=== PATIENT | female | born 1965 | race Caucasian/White ===

== ENCOUNTER 2016-06-04 19:55 | Emergency (ER) | payer BC ==
--- NOTE | 2016-06-04 20:30 | UC ---
Palpitation/Dysrhythmia HP - HPI Summary HPI Summary: The patient comes in today for: 1. Palpitations: Onset: 4 hours ago. Palliative/provocative: Laying down helped. Quality: Pressure Region/radiation: Chest with arm numbness Severity: 0/10, but Time: Comes and goes. She has a little bit of pressure at this time. Associated symptoms: Event: She was driving home from [place] today at about 4-5 PM. She had some chest pain/pressure, and palpitations with left arm tingling. She had also some dyspnea. She came here to get this checked out. She has had near syncope in the past with her palpitations, but not this time. This episode lasted about 1.5 hours. Nausea: None. Previous heart disease: She had SVT and a catheter ablation in 1999. Stress test (last one) 2004 (-): She had to wear a monitor--this was about two years ago. No problems found as far as she knows. * - History of Current Complaint Chief Complaint: UC Stated Complaint: HEART RACING/PRESSURE Time Seen by Provider: 06/04/16 20:23 Hx Obtained From: Patient Hx Last Menstrual Period: ablastion 02/14 - Allergy/Home Medications Allergies/Adverse Reactions: Allergies Allergy/AdvReac Type Severity Reaction Status Date / Time Sulfa Antibiotics AdvReac Severe Nausea, Verified 06/04/16 20:02 VERTIGO Home Medications: Home Medications Albuterol HFA INHALER* [Ventolin HFA Inhaler*] 2 puff INH Q4H PRN 06/04/16 [ History Confirmed 06/04/16] Fluticasone HFA 44 mcg(NF) [Flovent Hfa 44 mcg(NF)] 1 puff INH BID 06/04/16 [ History Confirmed 06/04/16] PMH/Surg Hx/FS Hx/Imm Hx Previously Healthy: No Endocrine History Of: Denies: Diabetes, Thyroid Disease Cardiovascular History Of: Reports: Cardiac Disorders - cardiac ablation for SVT Denies: Hypertension, Pacemaker/ICD, Myocardial Infarction, Congestive Heart Failure, Atrial Fibrillation, Deep Vein Thrombosis, Bleeding Disorders Respiratory History Of: Reports: Asthma GI/ History Of: Denies: Gastroesophageal Reflux, Ulcer, Gastrointestinal Bleed, Gall Bladder Disease, Kidney Stones, Diverticulitis, Renal Disease, Urosepsis Neurological History Of: Reports: Migraine - ONCE A MONTH Denies: TIA, CVA, Dementia, Seizures Psychological History Of: Denies: Anxiety, Depression, Bipolar Disorder, Schizophrenia, Post Traumatic Stress Disorder Cancer History Of: Denies: Lung Cancer, Colorectal Cancer, Breast Cancer, Prostate Cancer, Cervical Cancer Other History Of: Negative For: HIV, Hepatitis B, Hepatitis C, Anticoagulant Therapy - Surgical History Surgical History: Yes Surgery Procedure, Year, and Place: RHINOPLASTY-1988. RIGHT LUMPECTOMY 1994 [facility] [place]. SURGERY TO CORRECT [id number] RP. gallbladder October 2013, ablation 02/14, gastric sleeve 08/16 - Family History Known Family History: Positive: Cardiac Disease - Father had WPW., Hypertension - Social History Occupation: Employed Full-time Alcohol Use: None Substance Use Type: None Smoking Status (MU): Never Smoked Tobacco - Immunization History Most Recent Influenza Vaccination: fall 2015 Most Recent Tetanus Shot: 11/22/12 Most Recent Pneumonia Vaccination: pt declines Review of Systems Constitutional: Negative Skin: Negative Eyes: Negative ENT: Negative Respiratory: Negative Cardiovascular: Chest Pain Gastrointestinal: Negative Genitourinary: Negative All Other Systems Reviewed And Are Negative: Yes Physical Exam Triage Information Reviewed: Yes Appearance: Well-Appearing, No Pain Distress, Well-Nourished Vital Signs: Initial Vital Signs Temp 98.9 F 06/04/16 20:05 Pulse 64 06/04/16 20:05 Resp 16 06/04/16 20:05 BP 120/73 06/04/16 20:05 Pulse Ox 97 06/04/16 20:05 Vital Signs Reviewed: Yes Eyes: Positive: Conjunctiva Clear. Negative: Discharge ENT: Positive: Hearing grossly normal. Negative: Pharyngeal erythema, Nasal congestion, Nasal drainage, TM bulging, TM dull, TM red, Tonsillar swelling, Tonsillar exudate Dental: Negative: Gross Decay/Caries @, Dental Fracture @ Neck: Positive: Supple, Nontender, No Lymphadenopathy. Negative: Nuchal Rigidity Respiratory: Positive: Lungs clear, No respiratory distress, No accessory muscle use. Negative: Crackles, Wheezing Cardiovascular: Positive: RRR, No Murmur Abdomen Description: Positive: Nontender, No Organomegaly, Soft. Negative: Distended, Guarding Musculoskeletal: Positive: Strength Intact, ROM Intact, No Edema Neurological: Positive: Alert Psychological: Positive: Age Appropriate Behavior, Consolable Skin: Negative: rashes, breakdown Diagnostics - Laboratory Diagnostic Studies Completed/Ordered: EKG: Rate: 67. Rhythm: sinus. Ectopy: None. Acute changes--none--no change from previous EKG. Palpitations Course/Dx - Course Course Of Treatment: Patient was told of my recommendation to go to the ER for evaluation of her chest pressure/palpitations. She will be given 324 mg of aspirin and 0.4 mg of nitroglycerine SL. - Differential Dx/Diagnosis Provider Diagnoses: Chest pressure, palpitations, - Physician Notifications Discussed Patient Care With: Dr. Guzman Time Discussed With Above Provider: 20:42 Discharge - Discharge Plan Condition: Stable Disposition: HOME Additional Instructions: Patient being sent to [facility] ER via ambulance.
[2016-06-04] MEDS ORDERED: Nitroglycerin TAB 0.4 MG* 0.4 MG TAB ONE (20:37)
[2016-06-04] MEDS ORDERED: Aspirin Low Dose CHEW TAB* 81 MG ONE (20:37)
[2016-06-04] MEDS ORDERED: Aspirin Low Dose CHEW TAB* 81 MG PO ONE (20:38)
[2016-06-04] MEDS ORDERED: Nitroglycerin TAB 0.4 MG* 0.4 MG TAB SL ONE (20:39)
[2016-06-04 21:09] VITALS: BP 141/71
== END 2016-06-04 20:58 | disposition short-term general hospital (02) ==
LOC: UCEAST 19:55
DX: R07.89 Other chest pain (principal); R00.2 Palpitations; I47.1 Supraventricular tachycardia; Z88.2 Allergy status to sulfonamides
CPT/HCPCS: 93005; 99213; A9270-GY; G0463

== ENCOUNTER 2016-06-04 21:18 | Observation (INO) | payer BC ==
[2016-06-04] MEDS ORDERED: Aspirin Low Dose CHEW TAB* 81 MG PO ONE (22:11)
[2016-06-04 22:20] LABS: Hematocrit 36 % (35-47); Hemoglobin 12.1 g/dl (12.0-16.0); Mean Corpuscular HGB Conc 33 g/dl (31-36); Mean Corpuscular Hemoglobin 30 pg (27-31); Mean Corpuscular Volume 91 fL (80-97); Mean Platelet Volume 8 um3 (7.4-10.4); Red Cell Distribution Width 13 % (10.5-15); White Blood Count 7.5 10^3/ul (3.5-10.8)
[2016-06-04 22:36] LABS: Albumin 3.8 g/dL (3.2-5.2); BUN/Creatinine Ratio 14.4 (8-20); Calcium 8.8 mg/dL (8.6-10.3); EGFR African American 78.2 (>60); EGFR Non-African American 60.8 (>60); Globulin 2.6 g/dL (2-4); Magnesium 1.9 mg/dL (1.9-2.7); Potassium 3.4 mmol/L (3.5-5.0); Total Bilirubin 0.4 mg/dL (0.2-1.0); Total Protein 6.4 g/dL (6.4-8.9)
[2016-06-04] MEDS ORDERED: Potassium Chlor TAB* 20 MEQ TAB.ER PO ONE (22:44)
--- NOTE | 2016-06-04 22:59 | RAD ---
INDICATION: Chest pain. COMPARISON: Comparison is made with a prior chest x-ray study from April 22, 2013. TECHNIQUE: A portable view of the chest was obtained. FINDINGS: Cardiac and mediastinal contours appear to be within normal limits. The lungs are clear. No pleural effusion is seen. IMPRESSION: NO EVIDENCE FOR ACUTE DISEASE.
--- NOTE | 2016-06-05 00:02 | ED ---
Abdifatah Morales Billy, scribed for Jeremias Guzman MD on 06/04/16 at 2217 . HPI Chest Pain - HPI Summary HPI Summary: Patient is a 50 year-old female coming to [facility] presenting with left-sided chest pain starting at 1630 today, lasting approximately 90 minutes. She was seen at the Urgent Care and was given NTG and ASA, which improved her symptoms. At time of onset, she describes chest pressure and LUE numbness/tingling along with SOB. However, at this time, she only describes chest pain, non-radiating, 2 /10. Denies any N/V or dizziness. - History of Current Complaint Chief Complaint: EDChestPainROMI Time Seen by Provider: 06/04/16 22:10 Hx Obtained From: Patient Onset/Duration: Started Hours Ago Timing: Constant Initial Severity: Moderate Current Severity: Moderate Pain Intensity: 2 Pain Scale Used: 0-10 Numeric Chest Pain Radiates: No Character: Pressure/Squeezing Aggravating Factor(s): Nothing Alleviating Factor(s): Medication, NTG 123 Associated Signs and Symptoms: Positive: Numbness, Tingling, Shortness of Breath. Negative: Dizziness, Nausea, Vomiting - Allergy/Home Medications Allergies/Adverse Reactions: Allergies Allergy/AdvReac Type Severity Reaction Status Date / Time Sulfa Antibiotics AdvReac Severe Nausea, Verified 06/04/16 20:02 VERTIGO PMH/Surg Hx/FS Hx/Imm Hx Endocrine/Hematology History: Denies: Hx Anticoagulant Therapy, Hx Diabetes, Hx Thyroid Disease Cardiovascular History: Reports: Other Cardiovascular Problems/Disorders - SVT Denies: Hx Congestive Heart Failure, Hx Deep Vein Thrombosis, Hx Hypertension , Hx Myocardial Infarction, Hx Pacemaker/ICD Respiratory History: Reports: Hx Asthma, Hx Sleep Apnea - NO MACHINE Denies: Hx Chronic Obstructive Pulmonary Disease (COPD), Hx Lung Cancer GI History: Denies: Hx Gall Bladder Disease, Hx Gastrointestinal Bleed, Hx Ulcer, Hx Urosepsis, Other GI Disorders History: Denies: Hx Kidney Stones, Hx Renal Disease Musculoskeletal History: Reports: Hx Arthritis - OSTEOARTHRITIS-KNEE, ANKLE, SHOULDERS Sensory History: Denies: Hx Contacts or Glasses, Hx Hearing Aid Opthamlomology History: Denies: Hx Contacts or Glasses Neurological History: Reports: Hx Migraine - ONCE A MONTH Denies: Hx Dementia, Hx Seizures, Hx Transient Ischemic Attacks (TIA), Other Neuro Impairments/Disorders Psychiatric History: Denies: Hx Anxiety, Hx Depression, Hx Schizophrenia, Hx Bipolar Disorder - Cancer History Hx Chemotherapy: No Hx Radiation Therapy: No - Surgical History Surgery Procedure, Year, and Place: RHINOPLASTY-1988. [place] [facility] [place]GERY TO CORRECT [id number] RP. gallbladder October 2013, ablation 02/14, gastric sleeve 08/16 Hx Anesthesia Reactions: Yes - AWOKE WITH HORRIBLE HEADACHE TWICE Infectious Disease History: No Infectious Disease History: Denies: Hx Clostridium Difficile, Hx Hepatitis, Hx Human Immunodeficiency Virus (HIV), Hx Shingles, Hx Tuberculosis, Hx Known/Suspected VRE, Hx Known/ Suspected VRSA, History Other Infectious Disease, Traveled Outside the [place] in Last 30 Days Comment Only: Hx of Known/Suspected MRSA - kids have hx - Family History Known Family History: Positive: Cardiac Disease - Father had WPW., Hypertension - Social History Alcohol Use: None Substance Use Type: Reports: None Smoking Status (MU): Never Smoked Tobacco Review of Systems Positive: Chest Pain Positive: Shortness Of Breath Negative: Vomiting, Nausea Positive: Paresthesia, Numbness All Other Systems Reviewed And Are Negative: Yes Physical Exam - Summary Physical Exam Summary: VITAL SIGNS: Reviewed. GENERAL: Patient is a well developed and nourished female who is lying comfortable in the stretcher. Patient is not in any acute respiratory distress. HEAD AND FACE: No signs of trauma. No ecchymosis, hematomas or skull depressions. No sinus tenderness. EYES: PERRLA, EOMI x 2, No injected conjunctiva, no nystagmus. EARS: Hearing grossly intact. Ear canals and tympanic membranes are within normal limits. MOUTH: Oropharynx within normal limits. NECK: Supple, trachea is midline, no adenopathy, no JVD, no carotid bruit, no c- spine tenderness, neck with full ROM. CHEST: Symmetric, no tenderness at palpation LUNGS: Clear to auscultation bilaterally. No wheezing or crackles. CVS: Regular rate and rhythm, S1 and S2 present, no murmurs or gallops appreciated. ABDOMEN: Soft, non-tender. No signs of distention. No rebound no guarding, and no masses palpated. Bowel sounds are normal. EXTREMITIES: FROM in all major joints, no edema, no cyanosis or clubbing. NEURO: Alert and oriented x 3. No acute neurological deficits. Speech is normal and follows commands. SKIN: Dry and warm Triage Information Reviewed: Yes Vital Signs On Initial Exam: Initial Vitals Temp Pulse Resp BP Pulse Ox 98.2 F 57 18 129/66 97 06/04/16 21:54 06/04/16 21:54 06/04/16 21:54 06/04/16 21:54 06/04/16 21:54 Vital Signs Reviewed: Yes Diagnostics - Vital Signs Vital Signs Temp Pulse Resp BP Pulse Ox 06/04/16 21:54 98.2 F 57 18 129/66 97 - Laboratory Lab Results: Lab Results 06/04/16 06/04/16 06/04/16 Range/Units 20:53 20:53 20:53 WBC 7.5 (3.5-10.8) 10^3/ul RBC 4.00 (4.0-5.4) 10^6/ul Hgb 12.1 (12.0-16.0) g/dl Hct 36 (35-47) % MCV 91 (80-97) fL MCH 30 (27-31) pg MCHC 33 (31-36) g/dl RDW 13 (10.5-15) % Plt Count 230 (150-450) 10^3/ul MPV 8 (7.4-10.4) um3 Neut % (Auto) 63.3 (38-83) % Lymph % (Auto) 23.1 L (25-47) % Butler % (Auto) 11.1 H (1-9) % Eos % (Auto) 2.0 (0-6) % Baso % (Auto) 0.5 (0-2) % Absolute Neuts (auto) 4.7 (1.5-7.7) 10^3/ul Absolute Lymphs (auto) 1.7 (1.0-4.8) 10^3/ul Absolute Monos (auto) 0.8 (0-0.8) 10^3/ul Absolute Eos (auto) 0.2 (0-0.6) 10^3/ul Absolute Basos (auto) 0 (0-0.2) 10^3/ul Absolute Nucleated RBC 0.01 10^3/ul Nucleated RBC % 0.1 Sodium 140 (133-145) mmol/L Potassium 3.4 L (3.5-5.0) mmol/L Chloride 105 (101-111) mmol/L Carbon Dioxide 30 (22-32) mmol/L Anion Gap 5 (2-11) mmol/L BUN 14 (6-24) mg/dL Creatinine 0.97 H (0.51-0.95) mg/dL Est GFR ( Amer) 78.2 (>60) Est GFR (Non-Af Amer) 60.8 (>60) BUN/Creatinine Ratio 14.4 (8-20) Glucose 90 (70-100) mg/dL Lactic Acid 1.0 (0.5-2.0) mmol/L Calcium 8.8 (8.6-10.3) mg/dL Magnesium 1.9 (1.9-2.7) mg/dL Total Bilirubin 0.40 (0.2-1.0) mg/dL AST 14 (13-39) U/L ALT 9 (7-52) U/L Alkaline Phosphatase 60 (34-104) U/L CK-MB (CK-2) 1.3 (0.6-6.3) ng/mL Troponin I 0.00 (<0.04) ng/mL B-Natriuretic Peptide ( - 100) pg/mL Total Protein 6.4 (6.4-8.9) g/dL Albumin 3.8 (3.2-5.2) g/dL Globulin 2.6 (2-4) g/dL Albumin/Globulin Ratio 1.5 (1-3) 06/04/16 Range/Units 20:53 WBC (3.5-10.8) 10^3/ul RBC (4.0-5.4) 10^6/ul Hgb (12.0-16.0) g/dl Hct (35-47) % MCV (80-97) fL MCH (27-31) pg MCHC (31-36) g/dl RDW (10.5-15) % Plt Count (150-450) 10^3/ul MPV (7.4-10.4) um3 Neut % (Auto) (38-83) % Lymph % (Auto) (25-47) % Butler % (Auto) (1-9) % Eos % (Auto) (0-6) % Baso % (Auto) (0-2) % Absolute Neuts (auto) (1.5-7.7) 10^3/ul Absolute Lymphs (auto) (1.0-4.8) 10^3/ul Absolute Monos (auto) (0-0.8) 10^3/ul Absolute Eos (auto) (0-0.6) 10^3/ul Absolute Basos (auto) (0-0.2) 10^3/ul Absolute Nucleated RBC 10^3/ul Nucleated RBC % Sodium (133-145) mmol/L Potassium (3.5-5.0) mmol/L Chloride (101-111) mmol/L Carbon Dioxide (22-32) mmol/L Anion Gap (2-11) mmol/L BUN (6-24) mg/dL Creatinine (0.51-0.95) mg/dL Est GFR ( Amer) (>60) Est GFR (Non-Af Amer) (>60) BUN/Creatinine Ratio (8-20) Glucose (70-100) mg/dL Lactic Acid (0.5-2.0) mmol/L Calcium (8.6-10.3) mg/dL Magnesium (1.9-2.7) mg/dL Total Bilirubin (0.2-1.0) mg/dL AST (13-39) U/L ALT (7-52) U/L Alkaline Phosphatase (34-104) U/L CK-MB (CK-2) (0.6-6.3) ng/mL Troponin I (<0.04) ng/mL B-Natriuretic Peptide 44 ( - 100) pg/mL Total Protein (6.4-8.9) g/dL Albumin (3.2-5.2) g/dL Globulin (2-4) g/dL Albumin/Globulin Ratio (1-3) Result Diagrams: 06/04/16 20:53 06/04/16 20:53 Lab Statement: Any lab studies that have been ordered have been reviewed, and results considered in the medical decision making process. - Radiology CXR Xray Interpretation: No Acute Changes Radiology Interpretation Completed By: Radiologist - EKG 4421 EKG Interpretation: sinus negro 53 bpm, no ST elevation Chest Pain Course/Dx - Course Assessment/Plan: Patient is a 50 year-old female coming to [facility] presenting with left-sided chest pain starting at 1630 today, lasting approximately 90 minutes. She was seen at the Urgent Care and was given NTG and ASA, which improved her symptoms. At time of onset, she describes chest pressure and LUE numbness/tingling along with SOB. However, at this time, she only describes chest pain, non-radiating, 2/10. Denies any N/V or dizziness. Bloodwork WNL except for potassium of 3.4 for which the patient was given potassium chloride. CXR shows no acute disease. EKG shows sinus bradycardia without ST elevation. Since we are waiting for the second troponin reading, the patient will be signed out to Dr. Montano at shift change. She is hemodynamically stable, A&Ox3. - Chest Pain Differential Diagnosis/HQI/PQRI: ACS, Angina, CHF, Chest Wall, GI Disease, Lower Respiratory Infection - Diagnoses Provider Diagnoses: Chest pain Discharge - Discharge Plan Condition: Stable Disposition: HOME Patient Education Materials: Chest Pain (ED) Referrals: Amy Betancourt MD [Primary Care Provider] - The documentation as recorded by the Abdifatah alexanedr Billy accurately reflects the service I personally performed and the decisions made by , Jeremias Guzman MD.
[2016-06-05 00:45] LABS: Urine Bilirubin Negative (Negative); Urine Glucose Negative (Negative); Urine Nitrite Negative (Negative)
[2016-06-05] MEDS ORDERED: Fluticasone HFA 44 mcg(NF) MDI INH PRN (05:03)
[2016-06-05] MEDS ORDERED: Albuterol HFA INHALER* 8 gm MDI INH PRN (05:03)
[2016-06-05] MEDS ORDERED: Heparin VIAL(*) 5000 UNITS/ML VIAL (FIVE THOUSAND) SUBCUT SCH (06:00)
[2016-06-05 06:04] LABS: HDL Cholesterol 46.1 mg/dL
[2016-06-05 06:07] LABS: Troponin I 0.01 ng/mL (<0.04)
--- NOTE | 2016-06-05 08:20 | HP ---
HISTORY AND PHYSICAL: DATE OF ADMISSION: 06/05/16 CHIEF COMPLAINT: Chest pain. HISTORY OF PRESENT ILLNESS: The patient is a 50-year-old woman who presented to [facility] with chief complaint of chest pain that started while she was driving today about 4:30 p.m. It was a pressure-like pain, and felt like an air bubble in her chest. At its worst, it was 4-6/10 in severity. It also seemed to radiate to both arms with numbness and tingling. When she got here, she received nitro, which seemed to help the pain. She did, however, become nauseated but did not vomit. She had associated shortness of breath and used her inhaler which seemed to help that. She has had no sweating. Currently , she is chest pain free. PAST MEDICAL HISTORY: Significant for seasonal allergies, asthma, gastric sleeve surgery, cholecystectomy, catheter ablation for SVT, rhinoplasty for deviated septum, and right breast lumpectomy. CURRENT MEDICATIONS: 1. Vitamin B12 one tablet daily. 2. Multivitamin one tablet daily. 3. Ibuprofen 800 mg daily as needed. 4. Fluticasone Flovent one inhalation twice daily as needed. 5. Calcium 1000 plus vitamin D one tablet daily. 6. Albuterol inhaler two puffs every 4 hours as needed. ALLERGIES: She has an allergy/adverse reaction to SULFA ANTIBIOTICS. FAMILY HISTORY: Mother is alive at 69, has hypertension, diabetes, peripheral vascular disease, and CVA. Father at 58 at a car accident. SOCIAL HISTORY: No tobacco, no alcohol, no recreational drug use. She is a educational aide. She is . She has eight total. Her oldest son, Sam Peña, is her healthcare proxy. REVIEW OF SYSTEMS: A 14-point review of systems was completed with the patient. All pertinent positives and negatives are in the history of present illness; otherwise, it is negative. PHYSICAL EXAMINATION GENERAL: Pleasant woman lying in bed, in no acute distress. VITAL SIGNS: Blood pressure 100/64, pulse ox 97%, respiratory rate 12 breaths per minute, heart rate 48 beats per minute, temperature 98.2 degrees. HEENT: Normocephalic, atraumatic. Pupils are equal, round, and reactive to light. Moist mucous membranes. NECK: Supple. No JVD, bruits, palpable thyroid, or lymphadenopathy. CHEST: Clear to auscultation and percussion bilaterally. CARDIOVASCULAR: S1 and S2 appreciated. Regular rate and rhythm. No murmurs, gallops, or rubs. ABDOMEN: Positive bowel sounds in all 4 quadrants. Soft, nontender, and nondistended. EXTREMITIES: No cyanosis, clubbing, or edema. +2 peripheral pulses bilaterally. NEUROLOGIC: Alert and oriented x3, moves all extremities. SKIN: No rashes or abnormalities. DIAGNOSTIC DATA AND LABORATORY DATA: White count 7.5, hemoglobin 12.1, hematocrit 36, platelets 230. Sodium 140, potassium 3.4, chloride 105, CO2 30, BUN 14, creatinine 0.97, glucose 90. Troponin is 0.0; repeat troponin is 0.01. UA is unremarkable. EKG shows sinus bradycardia at 53 beats per minute, left axis deviation, left internal hemiblock, no acute ST-T wave changes. Chest x-ray was interpreted by Radiology as no evidence for acute disease. ASSESSMENT AND PLAN: 1. Chest pain. The patient with reasonable story and it was relieved by nitro. We will keep the patient here. Get a stress test in the a.m. Check lipid profile. If stress test is negative, she can be likely discharged home with close followup with her PCP. 2. Fluids, electrolytes, nutrition. NPO for stress test. 3. Deep venous thrombosis prophylaxis. Heparin subcu. 4. The patient is a full code. TIME SPENT: Over 75 minutes were spent on this H and P, more than 40 minutes of which were spent in direct [id number] contact with the patient in evaluation, physical exam, counselling, and coordination of care. CC: Dr. Amy Betancourt * [id number]/CPS #: [id number] MTDD
[2016-06-05] MEDS ORDERED: Cholecalciferol TAB* 1000 UNITS PO SCH (09:00)
[2016-06-05] MEDS ORDERED: Multivitamins/Minerals TAB PO SCH (09:00)
[2016-06-05] MEDS ORDERED: Calcium Carbonate CHEW TAB* 500 MG (TUMS) PO SCH (09:00)
[2016-06-05] MEDS ORDERED: Regadenoson* 0.4 MG/5 ML SYRINGE ONE (12:11)
[2016-06-05] MEDS ORDERED: Acetaminophen TAB* 325 MG PO PRN (13:04)
--- NOTE | 2016-06-05 13:48 | RAD ---
Edited for charges. INDICATION: Chest pain. COMPARISON: There are no prior studies available for comparison. Technique: A single day myocardial perfusion stress study was performed. Initially the resting study was performed. The patient was given an intravenous injection of 10.4 mCi of technetium 99m tetrofosmin and and the heart was imaged in multiple projections. The patient returned later in the day and under the direction of Dr. Gallagher, the patient was given intervenous injection of Lexiscan. Subsequently the patient was given intravenous injection of 25.6 mCi of technetium 99m tetrofosmin and the heart was imaged in multiple projections. Images were reconstructed in the axial, sagittal and coronal planes and in a 3- D format. FINDINGS: There appears to be normal wall motion and myocardial thickening. The left ventricular ejection fraction was calculated to be 80%. Review of the images demonstrates no evidence for significant focal abnormality. IMPRESSION: NO EVIDENCE FOR INFARCT OR ISCHEMIA. ASSESSMENT: Low risk. Based on imaging criteria from ACC/AHA 2002 Guideline Update for the Management of Patients With Chronic Stable Angina Table 23. Noninvasive Risk Stratification. MTDD
--- NOTE | 2016-06-05 15:18 | PN ---
Subjective Date of Service: 06/05/16 Interval History: Patient seen and examined at bedside. Pt states that she feels well. She reports a headache after the stress test, but this is improved after caffeine. Pt denies fever, chills, shortness of breath, chest discomfort, N/V/D. Pt denies further pain in her left shoulder, reports an injury to her left shoulder in the past few weeks. Tele: Sinus negro, rate 50's. Family History: Unchanged from Admission Social History: Unchanged from Admission Past Medical History: Unchanged from Admission Objective Active Medications: Acetaminophen (Tylenol Tab*) 650 mg PO Q4H PRN Reason: FEVER/PAIN Albuterol (Ventolin Hfa Inhaler*) 2 puff INH Q4H PRN Reason: wheezes Calcium Carbonate (Tums*) 1,000 mg PO DAILY RANDALL Cholecalciferol (Vitamin D Tab*) 1,000 units PO DAILY RANDALL Fluticasone Propionate (Flovent Hfa 44 Mcg(Nf)) 1 puff INH BID PRN Reason: Allergy Symptoms Heparin Sodium (Porcine) (Heparin Vial(*)) 5,000 units SUBCUT Q8HR RANDALL Multivitamins/Minerals (Theragran/Minerals Tab*) 1 tab PO DAILY RANDALL Vital Signs 06/05/16 06/05/16 06:26 07:31 Temperature 97.3 F 98.3 F Pulse Rate 51 46 Respiratory 17 16 Rate Blood Pressure 137/77 102/56 (mmHg) O2 Sat by Pulse 100 98 Oximetry Oxygen Devices in Use Now: None Appearance: NAD, laying in bed. Eyes: No Scleral Icterus, PERRLA Ears/Nose/Mouth/Throat: NL Teeth, Lips, Gums, Mucous Membranes Moist Neck: NL Appearance and Movements; NL JVP, Trachea Midline Respiratory: Symmetrical Chest Expansion and Respiratory Effort, Clear to Auscultation Cardiovascular: NL Sounds; No Murmurs; No JVD, RRR Abdominal: NL Sounds; No Tenderness; No Distention - Bowel sounds present Extremities: No Edema Skin: No Rash or Ulcers Neurological: Alert and Oriented x 3, NL Muscle Strength and Tone Lines/Tubes/Other Access: Clean, Dry and Intact Peripheral IV - site benign Nutrition: Taking PO's Result Diagrams: 06/04/16 20:53 06/04/16 20:53 Additional Lab and Data: Assess/Plan/Problems-Billing Assessment: Ms. Soler is a 50 year old female with PMH significant for asthma, seasonal allergies and SVT s/p cardiac ablation who presented to the emergency room with complaints of chest pressure and feeling like an "air bubble" in her chest with associated shortness of breath and pain radiating to her left shoulder. - Patient Problems (1) Chest pain Code(s): R07.9 - CHEST PAIN, UNSPECIFIED SNOMED Code(s): 41871691 Comment: - Denies further chest pain - Stress test - low risk (2) DVT prophylaxis Code(s): KTG0959 - SNOMED Code(s): 159489858 (3) Full code status Current Visit: Yes Status: Acute Code(s): Z78.9 - OTHER SPECIFIED HEALTH STATUS SNOMED Code(s): 462573367 Status and Disposition: OBV. Stable for discharge to home today.
[2016-06-05 16:42] VITALS: BP 115/72
--- NOTE | 2016-06-06 14:50 | DS ---
DISCHARGE SUMMARY: DATE OF ADMISSION: 06/05/16 DATE OF DISCHARGE: 06/05/16 ATTENDING PHYSICIAN: Wilton Marr MD* (dictated by Ethel Freed NP) PRIMARY CARE PROVIDER: Dr. Amy Betancourt. STUDIES WHILE IN THE HOSPITAL: 1. Chest x-ray on 06/04/16. Radiologist's impression: No evidence for active disease. 2. Cardiac stress test on 06/05/16. Trade Recruiter's observation based on EKG with normal sinus rhythm and right bundle-branch block. Radiologist's impression: Lexiscan Myoview nuclear stress test without chest pain. No arrhythmias. No new ST-T changes. Conclusion: Uneventful first part of Lexiscan Myoview nuclear stress test. No evidence for infarct or ischemia. Low risk study. DISCHARGE MEDICATIONS: Continued home medications: 1. Calcium plus D one tablet oral daily. 2. Multivitamin one tablet oral daily. 3. Vitamin B12 one tablet oral daily. 4. Flovent HFA one puff inhalation twice daily as needed for allergy symptoms. 5. Albuterol HFA 2 puffs inhalation every 4 hours as needed for shortness of breath or wheeze. Changed medication: Ibuprofen 600 mg oral daily as needed for pain. HISTORY OF PRESENT ILLNESS/HOSPITAL COURSE: Ms. Soler is a 50-year-old female with past medical history significant for asthma, cardiac ablation for SVT, who presents to the hospital with complaints of chest discomfort while driving. The patient describes the pain as a pressure like discomfort and feeling like she had a "air bubble" in her chest. The patient also reports pain radiating in both of her arms, numbness and tingling. The patient also reports using her inhaler, which helped to relieve some associated shortness of breath. The patient did report some nausea, but denied any vomiting. The patient decided to present to the emergency room for further evaluation of her symptoms. While in the emergency room, the patient received nitro and the patient eventually was pain free. The patient had a chest x-ray showing no active disease. The patient also had an EKG showing a sinus bradycardia with a left axis deviation and left internal hemiblock, but no acute ST-T wave changes. The patient had labs that were reasonably unremarkable. She had a potassium of 3.4, creatinine of 0.97, troponin of 0.01 and repeat troponin was 0.01. The patient had an unremarkable urinalysis. Hospitalists were asked to evaluate the patient for admission. While in the hospital, the patient remained chest pain free. The patient reports recently having a left shoulder dislocation, she felt that this may have been contributing to her pain in her left shoulder yesterday. The patient states she has been able to ambulate without any shortness of breath or chest pain. The patient underwent a Myoview cardiac stress test that was a low risk. The patient's troponins were essentially flat at 0.01. The patient had a lipid panel that was within normal limits. The patient was slightly hypoglycemic upon arrival to the ER, but did not have repeat labs. It is to note that the patient also have slightly elevated creatinine of 0.97 during her stay. It is suspected that the patient's pain could be related to anxiety, indigestion and/or recent shoulder dislocation. Ms. Soler is stable for discharge to home today. PHYSICAL EXAMINATION: Vital signs are as follows: Temperature 97.4, heart rate 58, respiratory rate 16, O2 sat 97% on room air, blood pressure 115/72. DISCHARGE PLAN: Ms. Soler will be discharged to home. Activity as tolerated. She should be on a regular diet. With regard to the patient's chest pain, her chest pain has resolved. With the patient's description of like a bubble in her chest, I suspect this could potentially be indigestion. She had a negative stress test while here. The patient should follow with her primary care provider, Dr. Betancourt. Dr. Betancourt's office will call the patient for followup appointment. This is a summarized report of a complex medical history and hospital stay. For further details, please see the entire medical record. TIME SPENT: Time for this discharge was 50 minutes, 25 minutes was spent face-to- face with the patient discussing discharge plan and discharge instructions. CONDITION ON DISCHARGE: Stable. Reviewed by GUILLAUME ROMO 06/18/16 1427 CC: Dr. Amy Betancourt * [id number]/CPS #: [id number] EVAN
--- NOTE | 2016-07-31 11:01 | ED ---
Priya Morales Janilya, scribed for Matthew Montano MD on 06/05/16 at 0007 . Re-Evaluation - Re-Evaluation First Eval Re-Evaluation Time: 03:12 Change: Improved Comment: Pt still has 4/10 substernal CP. Original pain was alleviated with NTG. Course/Dx - Diagnoses Provider Diagnoses: Chest pain - Provider Notifications Discussed Care Of Patient With: Dr. Jade (hospitalist) at 0315: agrees to admit pt. Discharge - Discharge Plan Condition: Stable Disposition: ADMITTED TO [facility] Patient Education Materials: Chest Pain (ED) Referrals: Amy Betancourt MD [Primary Care Provider] - The documentation as recorded by the renettaibPriya be Janilya accurately reflects the service I personally performed and the decisions made by , Matthew Montano MD.
== END 2016-06-05 17:20 | disposition home or self-care (01) ==
LOC: ED 21:18 → MEDTELE 06-05 05:24
PROVIDERS: ADMIT Internal Medicine; ATTEND Hospitalist
DX: R07.9 Chest pain, unspecified (principal); R06.02 Shortness of breath; I45.10 Unspecified right bundle-branch block; R00.1 Bradycardia, unspecified; Z88.2 Allergy status to sulfonamides
CPT/HCPCS: 36415; 71010; 78452; 80053; 80061; 81003; 82553; 83605; 83735; 83880; 84484; 85025; 93005; 93017; 96372; 99284; A9270-GY; A9502; G0378; J1644; J2785

== ENCOUNTER 2016-09-28 19:53 | Emergency (ER) | payer BC ==
--- NOTE | 2016-09-28 22:00 | UC ---
Complaint Female HPI - HPI Summary HPI Summary: FEW DAYS OF URINARY FREQUENCY, URGENCY AND DYSURIA. TODAY NOTICED A TINGE OF BLOOD WHEN WIPING AFTER URINATING. NO FEVER, NAUSEA OR BACK PAIN. TO CLARIFY NURSING TRIAGE NOTE: 2 WEEKS AGO PT WAS AT PCP OFFICE FOR ANNUAL EXAM. HAS HAD SOME PELVIC PAIN AND STUDIES SHOWED MIGRATION OF ESSURE IMPLANT. GIVEN SX PT WAS "SWABBED FOR EVERYTHING". RECEIVED A CALL THAT SHE MAY HAVE SOME YEAST SO WAS PLACED ON DIFLUCAN X 1 AND THEN REPEATED SEVERAL DAYS LATER. PT DID NOT HAVE ANY NOTABLE DISCHARGE OR URINARY SX AT THAT TIME. - History Of Current Complaint Chief Complaint: UCGU Stated Complaint: FREQUENT URINATION Time Seen by Provider: 09/28/16 21:45 Hx Obtained From: Patient Hx Last Menstrual Period: UTERINE ABLATION (LMP 2013) Onset/Duration: Gradual Onset, Lasting Days, Still Present Timing: Constant Severity Initially: Moderate Severity Currently: Moderate Pain Intensity: 7 Pain Scale Used: 0-10 Numeric Character: Burning Aggravating Factor(s): Urination Alleviating Factor(s): Nothing Associated Signs And Symptoms: Negative: Fever, Vaginal Bleeding/Discharge, Nausea, Vomiting(# Of Episodes =), Genital Swelling, Genital Blisters - Allergies/Home Medications Allergies/Adverse Reactions: Allergies Allergy/AdvReac Type Severity Reaction Status Date / Time Sulfa Antibiotics AdvReac Severe Nausea, Verified 09/28/16 20:27 VERTIGO PMH/Surg Hx/FS Hx/Imm Hx Endocrine History Of: Denies: Diabetes, Thyroid Disease Cardiovascular History Of: Reports: Cardiac Disorders - cardiac ablation for SVT Denies: Hypertension, Pacemaker/ICD, Myocardial Infarction, Congestive Heart Failure, Atrial Fibrillation, Deep Vein Thrombosis, Bleeding Disorders Respiratory History Of: Reports: Asthma - ALLERGY-RELATED, Bronchitis Denies: COPD GI/ History Of: Denies: Gastroesophageal Reflux, Ulcer, Gastrointestinal Bleed, Gall Bladder Disease, Kidney Stones, Diverticulitis, Renal Disease, Urosepsis Neurological History Of: Reports: Migraine - ONCE A MONTH Denies: TIA, CVA, Dementia, Seizures Psychological History Of: Denies: Anxiety, Depression, Bipolar Disorder, Schizophrenia, Post Traumatic Stress Disorder Cancer History Of: Denies: Lung Cancer, Colorectal Cancer, Breast Cancer, Prostate Cancer, Cervical Cancer Other History Of: Negative For: HIV, Hepatitis B, Hepatitis C, Anticoagulant Therapy - Surgical History Surgical History: Yes Surgery Procedure, Year, and Place: RHINOPLASTY-1988. [place] [facility] [place] TO CORRECT [id number] [facility]. gallbladder October 2013, ablation 02/14, gastric sleeve 08/16, ESURE IMPLANTS IN FALLOPIAN TUBES - Family History Known Family History: Positive: Cardiac Disease - Father had WPW., Hypertension - Social History Alcohol Use: None Substance Use Type: None Smoking Status (MU): Never Smoked Tobacco - Immunization History Most Recent Influenza Vaccination: fall 2015 Most Recent Tetanus Shot: 11/22/12 Most Recent Pneumonia Vaccination: pt declines Review of Systems Constitutional: Negative Respiratory: Negative Cardiovascular: Negative Gastrointestinal: Abdominal Pain Genitourinary: Dysuria, Hematuria, Frequency, Urgency All Other Systems Reviewed And Are Negative: Yes Physical Exam Triage Information Reviewed: Yes Appearance: Well-Appearing, No Pain Distress, Well-Nourished Vital Signs: Initial Vital Signs Temp 97 F 09/28/16 20:20 Pulse 69 09/28/16 20:20 Resp 16 09/28/16 20:20 BP 101/71 09/28/16 20:20 Pulse Ox 100 09/28/16 20:20 Vital Signs Reviewed: Yes Eyes: Positive: Conjunctiva Clear ENT: Positive: Hearing grossly normal Neck: Positive: Supple Respiratory: Positive: No respiratory distress, No accessory muscle use Cardiovascular: Positive: Pulses Normal Abdomen Description: Positive: Nontender, Soft. Negative: CVA Tenderness (R), CVA Tenderness (L), Distended, Guarding Musculoskeletal: Positive: No Edema Neurological: Positive: Alert Psychological: Positive: Age Appropriate Behavior Skin: Negative: rashes Diagnostics - Laboratory Diagnostic Studies Completed/Ordered: URINE DIP SP. GR. 1.030, 1+ LEUKS, 3+ BLOOD, 2+ PROTEIN Complaint Female Dx - Differential Dx/Diagnosis Provider Diagnoses: UTI Discharge - Discharge Plan Condition: Stable Disposition: HOME Prescriptions: Ciprofloxacin TAB* [Cipro 500 MG TAB*] 500 mg PO BID #9 tab Phenazopyridine TAB* [Pyridium TAB*] 200 mg PO TID #6 tab Patient Education Materials: Urinary Tract Infection in Women (ED) Referrals: Amy Betancourt MD [Primary Care Provider] - If Needed
[2016-09-28] MEDS ORDERED: Ciprofloxacin TAB* 500 MG PO ONE (22:20)
[2016-09-28] MEDS ORDERED: Phenazopyridine TAB* 100 MG PO ONE (22:20)
[2016-09-28 22:41] VITALS: BP 109/71
--- NOTE | 2016-09-29 14:04 | UC ---
Progress - Progress Note Progress Note: Laboratory called and stated that they don't have a urine culture order which they need because they have a urine culture tube. So ordered.
--- NOTE | 2016-09-30 19:16 | UC ---
Progress - Progress Note Progress Note: Laboratory called and stated that they don't have a urine culture order which they need because they have a urine culture tube. So ordered. - Results/Orders Results/Orders: Preliminary results 10-25,000 e.coli, awaiting finial report
== END 2016-09-28 23:07 | disposition home or self-care (01) ==
LOC: UCEAST 19:53
DX: N39.0 Urinary tract infection, site not specified (principal); R31.9 Hematuria, unspecified; J45.909 Unspecified asthma, uncomplicated; Z88.2 Allergy status to sulfonamides; G43.909 Migraine, unspecified, not intractable, without status migrainosus; Z90.49 Acquired absence of other specified parts of digestive tract; Z98.84 Bariatric surgery status
CPT/HCPCS: 81003; 87077; 87086; 87186; 99211; A9270-GY; G0463

== ENCOUNTER 2017-03-17 13:11 | Emergency (ER) | payer BC ==
[2017-03-17 15:04] VITALS: BP 116/57
--- NOTE | 2017-03-17 15:48 | UC ---
Respiratory Complaint HPI - HPI Summary HPI Summary: This is a 51 yo female who presents with c/o cough x 3-4 weeks. She blamed it on allergies, but over the last 2-3d she reports worsening cough, SOB, fever, chills and some SOB. She started using her inhaler a couple of days ago which has helped somewhat. Denies CP, abd pain, n/v. - History of Current Complaint Hx Last Menstrual Period: UTERINE ABLATION (LMP 2013) <Yang Thakkar - Last Filed: 03/17/17 16:26> <Yris Marr - Last Filed: 03/17/17 17:58> - History of Current Complaint Chief Complaint: UCRespiratory Stated Complaint: CHEST INFECTION/COUGH - Allergies/Home Medications Allergies/Adverse Reactions: Allergies Allergy/AdvReac Type Severity Reaction Status Date / Time Sulfa Antibiotics AdvReac Severe Nausea, Verified 03/17/17 15:00 VERTIGO PMH/Surg Hx/FS Hx/Imm Hx Respiratory History: Asthma Other History Of: Negative For: HIV, Hepatitis B, Hepatitis C, Anticoagulant Therapy - Surgical History Surgical History: Yes Surgery Procedure, Year, and Place: RHINOPLASTY-1988. RIGHT LUMPECTOMY 1994 [facility] – [place]. SURGERY TO CORRECT [id number] [facility]. gallbladder October 2013, ablation 02/14, gastric sleeve 08/16, ESURE IMPLANTS IN FALLOPIAN TUBES - Family History Known Family History: Positive: Cardiac Disease - Father had WPW., Hypertension - Social History Alcohol Use: None Substance Use Type: None Smoking Status (MU): Never Smoked Tobacco - Immunization History Most Recent Influenza Vaccination: fall 2015 Most Recent Tetanus Shot: 11/22/12 Most Recent Pneumonia Vaccination: pt declines <Yang Thakkar - Last Filed: 03/17/17 16:26> Review of Systems Constitutional: Fever, Chills Skin: Negative Eyes: Negative ENT: Negative Respiratory: Shortness Of Breath, Cough Cardiovascular: Negative Gastrointestinal: Negative Genitourinary: Negative Motor: Negative Neurovascular: Negative Musculoskeletal: Negative Neurological: Negative Psychological: Negative Is Patient Immunocompromised?: No All Other Systems Reviewed And Are Negative: Yes <Yang Thakkar - Last Filed: 03/17/17 16:26> Physical Exam Triage Information Reviewed: Yes Appearance: Ill-Appearing - mildly Vital Signs: Initial Vital Signs Temp 98 F 03/17/17 15:01 Pulse 71 03/17/17 15:01 Resp 18 03/17/17 15:01 BP 116/57 03/17/17 15:01 Pulse Ox 100 03/17/17 15:01 Vital Signs Reviewed: Yes ENT Exam: Normal ENT: Positive: Normal ENT inspection Neck exam: Normal Neck: Positive: Supple, Nontender Respiratory: Positive: Lungs clear, Normal breath sounds, Other: - reduced air exchange. Negative: Crackles, Rhonchi, Stridor, Wheezing Cardiovascular: Positive: RRR, No Murmur Abdominal Exam: Normal Abdomen Description: Positive: Nontender Musculoskeletal Exam: Normal Musculoskeletal: Positive: Strength Intact Neurological Exam: Normal Neurological: Positive: Alert Psychological Exam: Normal Skin Exam: Normal <Yang Thakkar - Last Filed: 03/17/17 16:26> Vital Signs: Initial Vital Signs Temp 98 F 03/17/17 15:01 Pulse 71 03/17/17 15:01 Resp 18 03/17/17 15:01 BP 116/57 03/17/17 15:01 Pulse Ox 100 03/17/17 15:01 <Yris Marr - Last Filed: 03/17/17 17:58> Diagnostic Evaluation - Laboratory O2 Sat by Pulse Oximetry: 100 Diagnostic Studies Comment: CXR - NAD. Influenza - neg <Yang Thakkar - Last Filed: 03/17/17 16:26> Respiratory Course/Dx - Course Course Of Treatment: This is a 51 yo female with asthma who presents with c/o cough, fatigue, chills. Influenza neg and CXR neg. Likely a viral syndrome causing an exacerbation of her asthma - Differential Dx/Diagnosis Differential Diagnosis/HQI/PQRI: Bronchitis, Exacerbation Of COPD, Sinusitis Provider Diagnoses: 1. Asthma exacerbation. 2. Viral URI <Yang Thakkar - Last Filed: 03/17/17 16:26> Discharge <Yang Thakkar - Last Filed: 03/17/17 16:26> <Yris Marr - Last Filed: 03/17/17 17:58> - Discharge Plan Condition: Stable Disposition: HOME Prescriptions: Albuterol HFA INHALER* [Ventolin HFA Inhaler*] 2 puff INH Q4H PRN #1 mdi PRN Reason: wheezes Methylprednisolone [Medrol Dosepak 4 MG*] 4 mg PO .SEE ELVIE INSTRUCTION #1 elvie Patient Education Materials: Bronchospasm (ED) Referrals: Amy Betancourt MD [Primary Care Provider] - If Needed Additional Instructions: Instructions: 1. Please take steroids as directed 2. Use your inhaler as needed for cough/shortness of breath Attestation Statement User Type: Provider - I was available for consult. This patient was seen by the SE. The patient was not presented to, seen by, or examined by me. -Ferdinand <Yris Marr - Last Filed: 03/17/17 17:58>
--- NOTE | 2017-03-17 16:14 | RAD ---
INDICATION: Multiple weeks cough. Chest infection. COMPARISON: June 04, 2016. TECHNIQUE: Dual energy PA and routine lateral views of the chest were obtained. REPORT: No focal pulmonary lesion, compelling alveolar consolidation, pleural effusion, pneumothorax. The heart, pulmonary vasculature, and mediastinal contours are unremarkable. Gallbladder fossa level surgical clips. Mild thoracic degenerative spondylosis. IMPRESSION: No evidence for pneumonia. Negative exam.
== END 2017-03-17 16:30 | disposition home or self-care (01) ==
LOC: UCEAST 13:11
DX: J45.901 Unspecified asthma with (acute) exacerbation (principal); J06.9 Acute upper respiratory infection, unspecified
CPT/HCPCS: 71020; 87502; 99212; G0463

== ENCOUNTER 2018-01-26 14:55 | Emergency (ER) | payer BC, OTHER ==
[2018-01-26 15:10] VITALS: BP 107/70
--- NOTE | 2018-01-26 15:31 | UC ---
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 ABOUT A WEEK AGO THE STUDENT WAS BEING VERY AGGRESSIVE AND PATIENT HAD HER LEFT HAND AND RIGHT ARM CLOSED IN A DOOR. WAS IMPROVING UNTIL A FEW DAYS AGO. THE STUDENT HAS BEEN REPEATEDLY STRIKING THE PATIENT'S ARMS. SHE COMES IN WITH BRUISING AND WORSENING PAIN. HAS A HARD TIME PICKING UP EVEN RELATIVELY LIGHT OBJECTS. - History of Current Complaint Chief Complaint: UCUpperExtremity Stated Complaint: HAND INJURY Time Seen by Provider: 01/26/18 15:12 Hx Obtained From: Patient Hx Last Menstrual Period: UTERINE ABLATION (LMP 2013) Onset/Duration: Sudden Onset, Lasting Days, Still Present Severity Initially: Moderate Severity Currently: Moderate Pain Intensity: 4 Pain Scale Used: 0-10 Numeric Character: Sharp Aggravating Factor(s): Movement Alleviating Factor(s): Rest Associated Signs And Symptoms: Positive: Bruising Related History: Dominant Hand Right - Allergies/Home Medications Allergies/Adverse Reactions: Allergies Allergy/AdvReac Type Severity Reaction Status Date / Time Sulfa (Sulfonamide Allergy See Comment Verified 01/26/18 15:11 Antibiotics) PMH/Surg Hx/FS Hx/Imm Hx Respiratory History: Asthma Other History Of: Negative For: HIV, Hepatitis B, Hepatitis C, Anticoagulant Therapy - Surgical History Surgical History: Yes Surgery Procedure, Year, and Place: RHINOPLASTY-1988. [place] [facility] [place] TO CORRECT [id number] [place]. gallbladder October 2013, ablation 02/14, gastric sleeve 08/16, ESURE IMPLANTS IN FALLOPIAN TUBES - Family History Known Family History: Positive: Cardiac Disease - Father had WPW., Hypertension - Social History Alcohol Use: None Substance Use Type: None Smoking Status (MU): Never Smoked Tobacco - Immunization History Most Recent Influenza Vaccination: fall 2015 Most Recent Tetanus Shot: 11/22/12 Most Recent Pneumonia Vaccination: pt declines Review of Systems Constitutional: Negative Skin: Bruising Respiratory: Negative Cardiovascular: Negative Gastrointestinal: Negative Musculoskeletal: Arthralgia, Decreased ROM All Other Systems Reviewed And Are Negative: Yes Physical Exam Triage Information Reviewed: Yes Appearance: Well-Appearing, No Pain Distress, Well-Nourished Vital Signs: Initial Vital Signs Temp 98.3 F 01/26/18 15:04 Pulse 68 01/26/18 15:04 Resp 16 01/26/18 15:04 BP 107/70 01/26/18 15:04 Pulse Ox 98 01/26/18 15:04 Vital Signs Reviewed: Yes Eyes: Positive: Conjunctiva Clear ENT: Positive: Hearing grossly normal Neck: Positive: Supple Respiratory: Positive: No respiratory distress, No accessory muscle use Cardiovascular: Positive: Pulses Normal Abdomen Description: Positive: Soft Musculoskeletal: Positive: No Edema, ROM Limited @ - LEFT THUMB, RIGHT HAND Neurological: Positive: Alert Psychological: Positive: Age Appropriate Behavior Skin: Positive: Other - BRUISING RIGHT FOREARM Diagnostics - Radiology RIGHT HAND AND FOREARM XRAYS Xray Interpretation: No Acute Changes Radiology Interpretation Completed By: Radiologist Upper Extremity Course/Dx - Differential Dx/Diagnosis Provider Diagnoses: 1. RIGHT HAND/FOREARM CONTUSION. 2. LEFT HAND CONTUSION Discharge - Sign-Out/Discharge Documenting (check all that apply): Patient Departure All imaging exams completed and their final reports reviewed: Yes - Discharge Plan Condition: Stable Disposition: HOME Patient Education Materials: Contusion in Adults (ED) Forms: *Work Release Referrals: Amy Betancourt MD [Primary Care Provider] - If Needed Additional Instructions: XRAYS TODAY NEGATIVE FOR FRACTURE OR DISLOCATION. YOU HAVE SUSTAINED MULTIPLE CONTUSIONS FROM YOUR INJURY. YOUR SYMPTOMS SHOULD IMPROVE SIGNIFICANTLY OVER THE NEXT 1-2 WEEKS WITH ADEQUATE REST. IF YOU DO NOT IMPROVE EXPECTED FOLLOW- UP WITH YOUR PCP. YOU MAY BENEFIT FROM REPEAT IMAGING AT THAT TIME. OTC IBUPROFEN OR ALEVE NEEDED FOR DISCOMFORT. REST, ICE, COMPRESS, ELEVATE. RANDALL WRAP AND SPLINT NEEDED FOR SYMPTOM RELIEF. - Billing Disposition and Condition Condition: STABLE Disposition: Home
--- NOTE | 2018-01-26 15:44 | RAD ---
Indication: Right forearm injury. 2 views of the right forearm demonstrates no fracture. No other bone or joint abnormality is noted. IMPRESSION: No fracture of the right forearm is noted.
--- NOTE | 2018-01-26 15:46 | RAD ---
INDICATION: Right hand injury. TECHNIQUE: 4 views of the right hand were obtained. FINDINGS: The bones are in normal alignment. No fracture is seen. Joint spaces appear maintained. IMPRESSION: NO EVIDENCE FOR FRACTURE.
== END 2018-01-26 16:30 | disposition home or self-care (01) ==
LOC: UCEAST 14:55
DX: S60.221A Contusion of right hand, initial encounter (principal); S50.11XA Contusion of right forearm, initial encounter; S60.222A Contusion of left hand, initial encounter; W50.0XXA Accidental hit or strike by another person, initial encounter; Y93.89 Activity, other specified; Y92.219 Unspecified school as the place of occurrence of the external cause; Y99.0 Civilian activity done for income or pay; Z88.2 Allergy status to sulfonamides
CPT/HCPCS: 99213; G0463

== ENCOUNTER 2018-09-28 17:26 | Emergency (ER) | payer BC, OTHER ==
[2018-09-28 17:34] VITALS: BP 134/84
--- NOTE | 2018-09-28 19:16 | UC ---
Throat Pain/Nasal Lester HPI - HPI Summary HPI Summary: 53-year-old female comes in with a chief complaint of 11 days of upper respiratory tract infection symptoms. She's had rhinorrhea and it's moved down into her chest. She's been having wheezing. She is some albuterol that is old which did help some. Also use other [id number] medications help some of the symptoms but then symptoms return. - History of Current Complaint Chief Complaint: UCRespiratory Stated Complaint: RESP COMPLAINT Time Seen by Provider: 09/28/18 19:02 Hx Last Menstrual Period: UTERINE ABLATION (LMP 2013) Pain Intensity: 4 - Allergies/Home Medications Allergies/Adverse Reactions: Allergies Allergy/AdvReac Type Severity Reaction Status Date / Time Sulfa (Sulfonamide Allergy See Comment Verified 09/28/18 17:34 Antibiotics) PMH/Surg Hx/FS Hx/Imm Hx Previously Healthy: Yes Respiratory History: Asthma Other History Of: Negative For: HIV, Hepatitis B, Hepatitis C, Anticoagulant Therapy - Surgical History Surgical History: Yes Surgery Procedure, Year, and Place: RHINOPLASTY-1988. RIGHT LUMPECTOMY 1994 [facility] [place]. SURGERY TO CORRECT [id number]. gallbladder October 2013, ablation 02/14, gastric sleeve 08/16, ESURE IMPLANTS IN FALLOPIAN TUBES - Family History Known Family History: Positive: Cardiac Disease - Father had WPW., Hypertension - Social History Alcohol Use: None Substance Use Type: None Smoking Status (MU): Never Smoked Tobacco - Immunization History Most Recent Influenza Vaccination: fall 2015 Most Recent Tetanus Shot: 11/22/12 Most Recent Pneumonia Vaccination: pt declines Review of Systems All Other Systems Reviewed And Are Negative: Yes Constitutional: Positive: Negative Skin: Positive: Negative Eyes: Positive: Negative ENT: Positive: Sore Throat, Nasal Discharge, Sinus Congestion, Sinus Pain/ Tenderness Respiratory: Positive: Cough, Other - SEE HPI Cardiovascular: Positive: Negative Gastrointestinal: Positive: Negative Motor: Positive: Negative Neurovascular: Positive: Negative Musculoskeletal: Positive: Negative Neurological: Positive: Negative Psychological: Positive: Negative Is Patient Immunocompromised?: No Physical Exam Triage Information Reviewed: Yes Appearance: No Pain Distress, Well-Nourished, Ill-Appearing - MILD Vital Signs: Initial Vital Signs Temp 97.9 F 09/28/18 17:27 Pulse 87 09/28/18 17:27 Resp 16 09/28/18 17:27 BP 134/84 05/28/19 17:27 Pulse Ox 99 09/28/18 17:27 Vital Signs Reviewed: Yes Eye Exam: Normal Eyes: Positive: Conjunctiva Clear ENT: Positive: Pharyngeal erythema, Nasal congestion, Nasal drainage, TMs normal Neck: Positive: Supple Respiratory: Positive: Lungs clear, Normal breath sounds, No respiratory distress Cardiovascular: Positive: RRR Musculoskeletal Exam: Normal Musculoskeletal: Positive: Strength Intact, ROM Intact Neurological Exam: Normal Neurological: Positive: Alert, Muscle Tone Normal Psychological Exam: Normal Psychological: Positive: Age Appropriate Behavior Skin Exam: Normal Throat Pain/Nasal Course/Dx - Differential Dx/Diagnosis Provider Diagnosis: Sinusitis, Bronchitis with bronchospasm Discharge - Sign-Out/Discharge Documenting (check all that apply): Patient Departure All imaging exams completed and their final reports reviewed: No Studies - Discharge Plan Condition: Stable Disposition: HOME Prescriptions: Albuterol HFA INHALER* [Ventolin HFA Inhaler*] 2 puff INH Q4H PRN #1 mdi PRN Reason: Wheezing Benzonatate CAP* [Tessalon 100 MG CAP*] 100 mg PO TID PRN #20 cap PRN Reason: Cough DOXYcycline CAP(*) [DOXYcycline 100MG CAP(*)] 100 mg PO BID #20 cap Patient Education Materials: Sinusitis (ED), Acute Bronchitis (ED), Bronchospasm (ED) Forms: *Work Release Referrals: Amy Betancourt MD [Primary Care Provider] - Additional Instructions: FOLLOW UP WITH YOUR DOCTOR IF NOT COMPLETELY IMPROVED. GET RECHECKED SOONER IF YOUR CONDITION WORSENS OR ANY QUESTIONS OR CONCERNS. - Billing Disposition and Condition Condition: STABLE Disposition: Home
== END 2018-09-28 19:22 | disposition home or self-care (01) ==
LOC: UCEAST 17:26
DX: J45.909 Unspecified asthma, uncomplicated (principal); J32.9 Chronic sinusitis, unspecified; Z88.2 Allergy status to sulfonamides
CPT/HCPCS: 99212; G0463

== ENCOUNTER 2018-11-11 10:21 | Emergency (ER) | payer BC ==
[2018-11-11 10:42] VITALS: BP 118/66
--- NOTE | 2018-11-11 11:14 | UC ---
Lower Extremity/Ankle HPI - HPI Summary HPI Summary: Ms. Soler twisted her right knee playing kickball a couple weeks ago. Last night she slipped and fell and injured her left wrist and her left ankle. She is been using a splint on her knee and is gradually getting better but still feels unstable without the splint. - History of Current Complaint Chief Complaint: UCLowerExtremity Stated Complaint: RT KNEE/LT ANKLE/LTWRIST Time Seen by Provider: 11/11/18 11:00 Hx Obtained From: Patient Hx Last Menstrual Period: UTERINE ABLATION (LMP 2013) Onset/Duration: Sudden Onset Severity Initially: Moderate Severity Currently: Moderate Pain Intensity: 6 Aggravating Factor(s): Standing, Ambulation Alleviating Factor(s): Rest Able to Bear Weight: Yes - Allergies/Home Medications Allergies/Adverse Reactions: Allergies Allergy/AdvReac Type Severity Reaction Status Date / Time Sulfa (Sulfonamide Allergy See Comment Verified 11/11/18 10:42 Antibiotics) Home Medications: Home Medications Acetaminophen [Mapap] 1,000 mg PO ONCE PRN 11/11/18 [History Confirmed 11/11/18] Ibuprofen 400 mg PO ONCE PRN 11/11/18 [History Confirmed 11/11/18] Levalbuterol HFA INHALER* [Xopenex Hfa Inhaler*] 1 puff INH DAILY PRN 11/11/18 [ History Confirmed 11/11/18] PMH/Surg Hx/FS Hx/Imm Hx Previously Healthy: Yes Respiratory History: Asthma Other Neurological History: Sleep Apnea Other History Of: Negative For: HIV, Hepatitis B, Hepatitis C, Anticoagulant Therapy - Surgical History Surgical History: Yes Surgery Procedure, Year, and Place: RHINOPLASTY-1988. RIGHT LUMPECTOMY 1994 [facility] – [place]. SURGERY TO CORRECT [id number] [facility]. gallbladder October 2013, ablation 02/14, gastric sleeve 08/16, ESURE IMPLANTS IN [place]ALL[place]IAN TUBES - Family History Known Family History: Positive: Cardiac Disease - Father had WPW., Hypertension - Social History Alcohol Use: None Substance Use Type: None Smoking Status (MU): Never Smoked Tobacco - Immunization History Most Recent Influenza Vaccination: fall 2015 Most Recent Tetanus Shot: 11/22/12 Most Recent Pneumonia Vaccination: pt declines Review of Systems All Other Systems Reviewed And Are Negative: Yes Motor: Positive: Decreased ROM Neurovascular: Positive: Negative Musculoskeletal: Positive: Decreased ROM Neurological: Positive: Negative Physical Exam - Summary Physical Exam Summary: She is nontoxic in appearance with stable vital signs. Triage Information Reviewed: Yes Appearance: Well-Appearing Vital Signs: Initial Vital Signs Temp 97.1 F 11/11/18 10:35 Pulse 62 11/11/18 10:35 Resp 18 11/11/18 10:35 BP 118/66 11/11/18 10:35 Pulse Ox 98 11/11/18 10:35 Vital Signs Reviewed: Yes Neck: Positive: Supple Musculoskeletal Exam: Other - Her left wrist is tender at the snuffbox only there is no swelling. Her left ankle is swollen and tender in the lateral malleolus area. There is no ligamentous laxity. Her right knee is mildly tender to all range of motion. There is no ligamentous laxity. Neurological Exam: Normal Skin Exam: Normal Diagnostics - Radiology left wrist Radiology Interpretation Completed By: Radiologist Summary of Radiographic Findings: No acute process left ankle Radiology Interpretation Completed By: Radiologist Summary of Radiographic Findings: No acute process Lower Extremity Course/Dx - Course Course Of Treatment: She clearly has a sprained ankle on the left and will need a gel cast. She has snuffbox tenderness in her left wrist and that will need to be immobilized also. She is already wearing a splint on her right knee. We are going to try to avoid crutches at this time. She will need orthopedic follow-up. - Differential Dx/Diagnosis Provider Diagnosis: Left wrist sprain, Ankle sprain, Knee injury Discharge - Sign-Out/Discharge Documenting (check all that apply): Patient Departure All imaging exams completed and their final reports reviewed: Yes - Discharge Plan Condition: Stable Disposition: HOME Patient Education Materials: Wrist Injury (ED), Ankle Sprain (ED), Knee Sprain (ED) Referrals: Amy Betancourt MD [Primary Care Provider] - - Billing Disposition and Condition Condition: STABLE Disposition: Home
== END 2018-11-11 12:35 | disposition home or self-care (01) ==
LOC: UCEAST 10:21
DX: S93.402A Sprain of unspecified ligament of left ankle, initial encounter (principal); S63.502A Unspecified sprain of left wrist, initial encounter; W01.0XXA Fall on same level from slipping, tripping and stumbling without subsequent striking against object, initial encounter; Y93.9 Activity, unspecified; Y92.9 Unspecified place or not applicable; S89.92XA Unspecified injury of left lower leg, initial encounter; X50.1XXA Overexertion from prolonged static or awkward postures, initial encounter; Y93.69 Activity, other involving other sports and athletics played as a team or group; J45.909 Unspecified asthma, uncomplicated
CPT/HCPCS: 99213; G0463

== ENCOUNTER 2018-12-04 17:18 | Emergency (ER) | payer BC ==
[2018-12-04 17:33] VITALS: BP 128/84
[2018-12-04] MEDS ORDERED: Cyclobenzaprine TAB* 10 MG PO ONE (18:00)
--- NOTE | 2018-12-04 18:20 | UC ---
Head Injury HPI - HPI Summary HPI Summary: PATIENT WAS CHAPERONING ON A FIELD TRIP TO A WATER PARK YESTERDAY. WHILE GOING DOWN A SLIDE SHE STRUCK THE BACK OF HER HEAD ON THE WATER SLIDE. NO LOC. SHE DENIES DIZZINESS, HEADACHE, PHOTOPHOBIA, VISUAL DISTURBANCES. SHE REPORTS PERSISTENT DULL PAIN IN HER HEAD. 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 SHE ALSO COMPLAINS OF LEFT LOWER BACK PAIN AFTER HER DAY AT THE PARK. NO NUMBNESS OR TINGLING. NO SADDLE ANESTHESIA. STATES IT FEELS LIKE A CONSTANT SPASM. - History Of Current Complaint Chief Complaint: UCHeadache Stated Complaint: HEADACHE Time Seen by Provider: 12/04/18 17:27 Hx Obtained From: Patient Hx Last Menstrual Period: UTERINE ABLATION (LMP 2013) Onset/Duration: Sudden Onset, Lasting Hours, Still Present Severity Currently: Moderate Severity Initially: Moderate Pain Intensity: 6 Pain Scale Used: 0-10 Numeric Character: Dull Aggravating Factor(s): Nothing Alleviating Factor(s): Other - IBUPROFEN, TYLENOL Associated Signs And Symptoms: Negative: LOC (Time In Secs./Mins/Hrs), Confusion , Epistaxis, Neck Pain, Nausea, Vomiting - Allergies/Home Medications Allergies/Adverse Reactions: Allergies Allergy/AdvReac Type Severity Reaction Status Date / Time Sulfa (Sulfonamide Allergy See Comment Verified 12/04/18 17:26 Antibiotics) PMH/Surg Hx/FS Hx/Imm Hx Cardiovascular History: Cardiac Disease - SVT Respiratory History: Asthma Other History Of: Negative For: HIV, Hepatitis B, Hepatitis C, Anticoagulant Therapy - Surgical History Surgical History: Yes Surgery Procedure, Year, and Place: RHINOPLASTY-1988. RIGHT LUMPECTOMY 1994 [facility] [place]. SURGERY TO CORRECT [id number] [facility]. gallbladder October 2013, ablation 02/14, gastric sleeve 08/16, ESURE IMPLANTS IN [place] TUBES - Family History Known Family History: Positive: Cardiac Disease - Father had WPW., Hypertension - Social History Alcohol Use: None Substance Use Type: None Smoking Status (MU): Never Smoked Tobacco - Immunization History Most Recent Influenza Vaccination: fall 2015 Most Recent Tetanus Shot: 11/22/12 Most Recent Pneumonia Vaccination: pt declines Review of Systems All Other Systems Reviewed And Are Negative: Yes Constitutional: Positive: Negative Skin: Positive: Negative Respiratory: Positive: Negative Cardiovascular: Positive: Negative Gastrointestinal: Positive: Negative Musculoskeletal: Positive: Myalgia Neurological: Positive: Headache Physical Exam Triage Information Reviewed: Yes Appearance: Well-Appearing, No Pain Distress, Well-Nourished Vital Signs: Initial Vital Signs Temp 97.8 F 12/04/18 17:22 Pulse 66 12/04/18 17:22 Resp 18 12/04/18 17:22 BP 00/00 12/04/18 17:22 Pulse Ox 98 12/04/18 17:22 Vital Signs Reviewed: Yes Eyes: Positive: Conjunctiva Clear ENT: Positive: Hearing grossly normal, Pharynx normal, TMs normal, Other - NO RHINORRHEA, NO DELCID SIGN, NO RACCOON EYES Neck: Positive: Supple Respiratory: Positive: No respiratory distress, No accessory muscle use Cardiovascular: Positive: Pulses Normal Abdomen Description: Positive: Soft Musculoskeletal: Positive: ROM Intact, No Edema Neurological: Positive: Alert, Muscle Tone Normal, Other: - CN II-XII GROSSLY INTACT BILATERALLY. RAPID ALTERNATING MOVEMENTS INTACT. NEG PRONATOR DRIFT. NEG ROMBERG. 5/5 STRENGTH. HEEL TO ANDREWS INTACT BILATERALLY. TANDEM GAIT INTACT. FINGER TO NOSE INTACT. Psychological: Positive: Age Appropriate Behavior Skin: Negative: Rashes Head Injury Course/Dx - Course Course Of Treatment: LOW SUSPICION FOR ANY INTRACRANIAL INJURY GIVEN THE HISTORY AND PHYSICAL EXAM. ADVISED OTC MEDICATIONS NEEDED FOR DISCOMFORT. STAY WELL HYDRATED AND RESTED. LOW BACK PAIN IS LIKELY DUE TO MUSCLE STRAIN SUSTAINED DURING THE FIELD TRIP. MUSCLE RELAXER NEEDED. FOLLOW-UP WITH PCP IF NOT IMPROVING EXPECTED. TO THE ER WITHOUT FAIL IF SYMPTOMS WORSEN. - Differential Dx/Diagnosis Provider Diagnosis: Head injury, Acute left-sided low back pain Discharge - Sign-Out/Discharge Documenting (check all that apply): Patient Departure All imaging exams completed and their final reports reviewed: No Studies - Discharge Plan Condition: Stable Disposition: HOME Prescriptions: Cyclobenzaprine TAB* [Flexeril TAB*] 10 mg PO BID PRN #30 tab PRN Reason: Pain Ibuprofen TAB* [Motrin TAB* 800 MG] 800 mg PO Q8H PRN #30 tab PRN Reason: Pain Patient Education Materials: Head Injury (ED), Low Back Strain (ED) Forms: *Work Release Referrals: Amy Betancourt MD [Primary Care Provider] - If Needed Additional Instructions: YOUR SYMPTOMS SHOULD IMPROVE OVER THE NEXT SEVERAL DAYS. BE SURE TO STAY WELL- HYDRATED AND RESTED. IBUPROFEN AND FLEXERIL NEEDED FOR DISCOMFORT. BE SURE TO GO THROUGH SLOW RANGE OF MOTION AND STRETCHING EXERCISES DAILY YOU ARE ABLE TO PREVENT STIFFENING UP AND MAKING THE DISCOMFORT WORSE. GO TO THE ED WITHOUT FAIL IF YOU DEVELOP UNEQUAL PUPILS, VISUAL DISTURBANCE, GAIT INSTABILITY, SPEECH DIFFICULTY, NAUSEA/VOMITING, WORSENING HEADACHE, DIZZINESS, CONFUSION, WEAKNESS OR ANY OTHER CONCERNING SYMPTOMS. - Billing Disposition and Condition Condition: STABLE Disposition: Home
== END 2018-12-04 18:22 | disposition home or self-care (01) ==
LOC: UCEAST 17:18
DX: S09.90XA Unspecified injury of head, initial encounter (principal); W22.8XXA Striking against or struck by other objects, initial encounter; Y93.18 Activity, surfing, windsurfing and boogie boarding; Y92.831 Amusement park as the place of occurrence of the external cause; Y99.8 Other external cause status; J45.909 Unspecified asthma, uncomplicated; Z88.2 Allergy status to sulfonamides
CPT/HCPCS: 99212; A9270-GY; G0463

== ENCOUNTER 2019-06-03 13:54 | Day surgery (SDC) | payer BC ==
[~2019-06-03 13:54] MED LIST: Buffered Lidocaine 1% SYRIN* 1 ML/SYRINGE INTRADERM ONE; Dexamethasone IV* 4 MG/ML 1 ML (4 MG) IV SLOW PU ONE; Famotidine IV* 10 MG/ML 2 ML (20 mg) IV ONE; Lactated Ringers 1000 ML Bag* 1,000 ML IV SCH
[2019-06-03] MEDS ORDERED: Dexamethasone IV* 4 MG/ML 1 ML (4 MG) ONE (14:10)
[2019-06-03] MEDS ORDERED: ceFAZolin 2 GM PREMIX in ORs 2 GM/50 ML BAG ONE (14:10)
[2019-06-03] MEDS ORDERED: Buffered Lidocaine 1% SYRIN* 1 ML/SYRINGE INTRADERM ONE (14:11)
[2019-06-03] MEDS ORDERED: Famotidine IV* 10 MG/ML 2 ML (20 mg) ONE (14:11)
[2019-06-03] MEDS ORDERED: fentaNYL* 50 MCG/ML 2 ML VIAL (100 MCG VIAL) IV PRN (16:27)
[2019-06-03] MEDS ORDERED: oxyCODONE/Acetamin 5/325 MG* TAB PO PRN (16:27)
[2019-06-03] MEDS ORDERED: HYDROcodone/ACETAMIN 5-325 MG* 1 TAB PO PRN (16:27)
[2019-06-03] MEDS ORDERED: DiMENhydriNATE IV* 50 MG/ML VIAL IV PUSH PRN (16:27)
[2019-06-03] MEDS ORDERED: Naloxone* 0.4 MG/ML 1 ML VIAL IV PRN (16:27)
[2019-06-03] MEDS ORDERED: EPINEPHRINE 1 MG/ML 1 ML VIAL ONE (16:38)
[2019-06-03] MEDS ORDERED: Bupivacaine 0.5%* 50 ML MDV VIAL ONE (16:38)
[2019-06-03] MEDS ORDERED: Midazolam* 1 MG/ML 5 ML VIAL (5 MG) ONE (16:44)
[2019-06-03] MEDS ORDERED: fentaNYL* 50 MCG/ML 2 ML VIAL (100 MCG VIAL) ONE ×2 (16:44→18:04)
[2019-06-03] MEDS ORDERED: Lidocaine 2% PF * 5 ML VIAL ONE (16:55)
[2019-06-03] MEDS ORDERED: Propofol* 10 MG/ML 20 ML BTL ONE (16:55)
[2019-06-03] MEDS ORDERED: Ketorolac INJ* 30 MG/ML 1 ML VIAL ONE (17:04)
[2019-06-03] MEDS ORDERED: Bupivacaine 0.25% EPI 200,000* 30 ML SDV ONE (17:04)
[2019-06-03] MEDS ORDERED: Ondansetron INJ* 2 MG/ML VIAL ONE (17:41)
[2019-06-03] MEDS ORDERED: oxyCODONE/Acetamin 5/325 MG* TAB ONE (18:46)
[2019-06-03 20:00] VITALS: BP 111/79
--- NOTE | 2019-06-03 23:46 | OP ---
OPERATIVE REPORT: DATE OF OPERATION: 06/03/19 DATE OF : 65 SURGEON: Dr. Fredo Champion. MAINTENANCE MACHINIST: IVANIA Hernandez. A physician assistant distribution manager was required for the length of the procedure for assistance with patient positi oning, knee manipulation, instrumentation, and closure. ANESTHESIOLOGIST: Dr. Lokesh Falcon. ANESTHESIA: General anesthesia, local anesthesia including 30 cc of 0.25% Marcaine with epinephrine placed subcutaneous. PRE-OP DIAGNOSES: 1. Right knee lateral meniscus tear. 2. Right knee possible medial meniscus tear. 3. Right knee loose bodies. POST-OP DIAGNOSES: 1. Right knee lateral meniscus tear. 2. Right knee osteoarthritis. 3. No clear loose bodies, right knee. OPERATIVE PROCEDURE: 1. Right knee arthroscopic partial lateral meniscectomy. 2. Right knee arthroscopic evaluation for loose bodies. [id number] TIME: 25 minutes. TOURNIQUET TIME: 29 minutes at 300 mmHg, right thigh tourniquet. COMPLICATIONS: None. ESTIMATED BLOOD LOSS: Minimal. SPECIMEN: None. 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 She developed knee pain. She then fell down some stairs on 04/04/19 and had pain again. X-rays preoperatively showed mild medial compartment joint space narrowing and mild prieto llofemoral compartment narrowing. MRI showed what appeared to be 2 loose bodies just posterior to th e medial meniscus posterior horn and a possible medial meniscus tear as well as a radial directed par tial thickness posterior horn lateral meniscus tear. The patient responded insufficiently to non-operative treatment and opted for surgery. Discussed risks and potential complications of surgery. Discussed the heterogenous nature of meniscu s tears and how it was not assured that the patient would improve with surgery. DESCRIPTION OF PROCEDURE: In the preoperative holding, the patient signed a written consent. Operat shayla extremity was marked in preoperative holding. The patient was taken back to the operating room, placed supine on the operating room table. Sedated and intubated. Nixon bump, large, placed under the right hemipelvis. A foot bump was placed on the table. A lateral post was placed on the table. Right lower extremity was prepped and draped. Formal surgical time-out was performed. Esmarch josé miguel lied, tourniquet elevated to 300 mmHg. I made an anterolateral knee arthroscopy portal using standard technique. Commenced diagnostic arthro scopy. The patient had articular cartilage lesion, quite large about the medial aspect of the trochl ear groove. This looked chronic. It was filled with grade 2 or 3 articular cartilage wear. There wa s some minimal anterior bursitic inflamed tissue. I moved to the medial compartment. The anterior central or anterolateral aspect of the medial femora l condyle had another cartilage lesion, grade 2 at least. I established anteromedial portal under direct visualization. I debrided some bursitic tissue anteri jas. I evaluated the medial compartment. The medial compartment was limited in its opening. I probed the meniscus and no clear tear visualized or palpated by probing. I moved to the lateral compartment. There was articular cartilage injury notable in that lateral com partment. Close to the front of the lateral tibial plateau, there was widened fissure essentially wi th a grade 4 injury. Elsewhere about the tibial plateau, there was a grade 1 and 2 injury. As an aside I should state that even in the medial compartment and the medial tibial plateau, it was almost a linear area of prior articular cartilage injury that look like it had healed and synovialize d over with time. In the lateral compartment, the patient had some fraying on the inner surface of the anterior horn in the body. There was also a partial thickness radial tear in the posterior horn as anticipated by MR I preop. Using anteromedial and anterolateral portal, I debrided the posterior horn lateral meniscus tear back to a stable rim using arthroscopy shaver and meniscus bitters. Meniscal rim that remained was stable and still had some tightness to it. I next went hunting for the loose bodies which I have not encountered to this point during the proced ure. I went to the posterior medial compartment where they were visualized preoperatively on MRI. I aspirated in that compartment. I manipulated the back of the knee and there was no sign whatsoever of these loose bodies. A good visualization, perhaps not 100% but almost all of that posteromedial c ompartment and those were not seen. I considered making a posteromedial portal but this can lead to some additional swelling in that area and this patient had a little bit more arthritis than anticipat ed and no clear looseness of body, I held off on this. I figured that those loose bodies have likely synovialized and are not loose or not mobile at this point. I also looked in the popliteal fossa as well as the suprapatellar pouch and found no loose bodies. I removed instruments and fluids from the knee. I closed the skin incision with [id number] 12 s titches using nylon 3-0 suture, local anesthesia was injected in the subcutaneous tissue. Xeroform, 4 x 4s, ABDs, sterile Webril, Zoran bandage from foot to proximal groin. Cooling unit. The patient was awakened, extubated, and transferred to the PACU. DISPOSITION: The patient will be discharged to home when medically stable. Wound care instructions provided. The patient will see me in 10 to 14 days postoperatively in clinic. The patient will rece shayla Percocet as needed for pain control or another narcotic. Aspirin for 2 weeks for DVT prophylaxis . The patient is to start physical therapy immediately with weightbearing as tolerated, to wean out of the crutches. [id number]/[facility] #: [id number]
== END 2019-06-03 19:30 | disposition home or self-care (01) ==
LOC: OR 13:54
PROVIDERS: ATTEND Orthopaedic Surgery
DX: S83.281A Other tear of lateral meniscus, current injury, right knee, initial encounter (principal); M17.11 Unilateral primary osteoarthritis, right knee; X50.0XXA Overexertion from strenuous movement or load, initial encounter; Y93.69 Activity, other involving other sports and athletics played as a team or group; Y92.328 Other athletic field as the place of occurrence of the external cause; J45.909 Unspecified asthma, uncomplicated
CPT/HCPCS: A9270-GY; J0690; J1100; J1885; J2250; J2405; J2704; J3010; J3490